=== PATIENT | male | born 1975 | race Caucasian/White ===

== ENCOUNTER → 2018-03-22 | Outpatient (CLI) | payer OTHER ==
[~2018-03-22] MED LIST: ALPR-475 PO; ASCO-184 PO; ASPI-621 PO; CYCL-259 PO; METO25TA35 PO; OXYC5TAB3 PO; WARF10TA PO-COUM; no medications
[2018-03-22 11:03] LABS: BASOPHILS # (AUTO) 0.06 x10^3/uL (0-0.1); BASOPHILS % (AUTO) 1 % (0-1); EOSINOPHILS # (AUTO) 0.57 x10^3/uL (0-0.4); EOSINOPHILS % (AUTO) 7 % (1-7); LYMPHOCYTES % (AUTO) 27 % (22-44); MD NO; MEAN CORPUSCULAR HEMOGLOBIN 29.8 pg (27.5-34.5); MEAN CORPUSCULAR HGB CONC 33.8 g/dL (33.2-36.2); MEAN PLATELET VOLUME 11.1 fL (7.4-10.4); MONOCYTES # (AUTO) 0.73 x10^3/uL (0.2-0.8); MONOCYTES % (AUTO) 9 % (2-9); NEUTROPHILS # (AUTO) 4.43 x10^3/uL (1.8-6.8); NEUTROPHILS % (AUTO) 56 % (42-75); PLATELET COUNT 174 x10^3/uL (130-400); RED BLOOD COUNT 5.36 x10^6/uL (4.38-5.82); RED CELL DISTRIBUTION WIDTH 13.4 % (9.4-14.8)
[2018-03-22 11:16] LABS: ALBUMIN 3.7 g/dL (3.4-5.0); CHLORIDE 107 mmol/L (98-107)
[2018-03-22 11:19] LABS: ALANINE AMINOTRANSFERASE 51 U/L (12-78); ALKALINE PHOSPHATASE 60 U/L (45-117); BILIRUBIN,TOTAL 0.8 mg/dL (0.2-1.0); CREATININE 0.95 mg/dL (0.7-1.3); TOTAL PROTEIN 7.5 g/dL (6.4-8.2)
[2018-03-22 11:21] LABS: ANION GAP 5 mmol/L (5-15)
== END | disposition home or self-care (01) ==
LOC: STAR 10:16
PROVIDERS: ATTEND Internal Medicine Cardiovascular Disease
DX: Z01.818 Encounter for other preprocedural examination (principal); I71.9 Aortic aneurysm of unspecified site, without rupture; Q23.1 Congenital insufficiency of aortic valve; R03.0 Elevated blood-pressure reading, without diagnosis of hypertension; F17.220 Nicotine dependence, chewing tobacco, uncomplicated
CPT/HCPCS: 36415; 80053; 85025

== ENCOUNTER 2018-03-29 09:54 | Day surgery (SDC) | payer OTHER ==
[2018-03-22 10:53] VITALS: BP 118/86
[~2018-03-29] VITALS: Ht 172.7 cm; Wt 88.6 kg
[2018-03-29] MEDS ORDERED: SODIUM CHLORIDE 0.9% 1,000 ML IV ONE (10:15)
[2018-03-29] MEDS ORDERED: ASPIRIN 325 MG TABLET EC PO ONE (10:30)
[2018-03-29] MEDS ORDERED: no medications (10:34)
[2018-03-29] MEDS ORDERED: ASPIRIN 325 MG TABLET EC ONE (10:38)
[2018-03-29] MEDS ORDERED: LIDOCAINE-MPF 2% ,5ML ONE (11:39)
[2018-03-29] MEDS ORDERED: FENTANYL PF 100 MCG/2ML ONE (11:39)
[2018-03-29] MEDS ORDERED: CLOPIDOGREL 300 MG TABLET ONE (11:39)
[2018-03-29] MEDS ORDERED: HEPARIN 1,000 UNITS/ML, 10ML ONE (11:39)
[2018-03-29] MEDS ORDERED: MIDAZOLAM 1 MG/ML, 5ML ONE (11:39)
[2018-03-29] MEDS ORDERED: VERAPAMIL 2.5 MG/ML, 2ML ONE (11:39)
== END 2018-03-29 15:43 ==
LOC: CACL 09:54
PROVIDERS: ATTEND Internal Medicine Cardiovascular Disease
DX: I71.2 Thoracic aortic aneurysm, without rupture (principal); I35.1 Nonrheumatic aortic (valve) insufficiency; F17.220 Nicotine dependence, chewing tobacco, uncomplicated; Z72.89 Other problems related to lifestyle
CPT/HCPCS: 93458; 93567; 99156; C1769; C1894; J1644; J2250; J3010; J3490; Q9967

== ENCOUNTER → 2018-04-06 | Outpatient (CLI) | payer OTHER | END | disposition home or self-care (01) | LOC: CACL 11:51 | PROVIDERS: ATTEND Thoracic Surgery (Cardiothoracic Vascular Surgery) | DX: Z01.818 Encounter for other preprocedural examination (principal); I08.0 Rheumatic disorders of both mitral and aortic valves; I25.10 Atherosclerotic heart disease of native coronary artery without angina pectoris | CPT/HCPCS: 93005 ==

== ENCOUNTER 2018-04-07 04:32 | Inpatient (IN) | payer OTHER ==
[2018-04-06 14:29] LABS: MICROSCOPIC NOT IND
[2018-04-06 14:31] LABS: CULTURE INDICATED? NO
[2018-04-06 14:34] LABS: BASOPHILS # (AUTO) 0.05 x10^3/uL (0-0.1); BASOPHILS % (AUTO) 0 % (0-1); EOSINOPHILS # (AUTO) 0.54 x10^3/uL (0-0.4); EOSINOPHILS % (AUTO) 5 % (1-7); LYMPHOCYTES # (AUTO) 2.03 x10^3/uL (1-3.4); LYMPHOCYTES % (AUTO) 19 % (22-44); MD NO; MEAN CORPUSCULAR HEMOGLOBIN 30.8 pg (27.5-34.5); MEAN CORPUSCULAR HGB CONC 34.4 g/dL (33.2-36.2); MEAN CORPUSCULAR VOLUME 89.4 fL (81-97); MEAN PLATELET VOLUME 10.5 fL (7.4-10.4); MONOCYTES # (AUTO) 0.65 x10^3/uL (0.2-0.8); MONOCYTES % (AUTO) 6 % (2-9); NEUTROPHILS # (AUTO) 7.17 x10^3/uL (1.8-6.8); NEUTROPHILS % (AUTO) 69 % (42-75); PLATELET COUNT 176 x10^3/uL (130-400); RED BLOOD COUNT 5.55 x10^6/uL (4.38-5.82); RED CELL DISTRIBUTION WIDTH 13.4 % (9.4-14.8)
[2018-04-06 14:43] LABS: ALANINE AMINOTRANSFERASE 45 U/L (12-78); ALBUMIN 3.7 g/dL (3.4-5.0); ANION GAP 5 mmol/L (5-15); CALCIUM 8.8 mg/dL (8.5-10.1); CHLORIDE 106 mmol/L (98-107); CREATININE 0.99 mg/dL (0.7-1.3)
[2018-04-06 14:46] LABS: ALKALINE PHOSPHATASE 57 U/L (45-117); BILIRUBIN,TOTAL 1.1 mg/dL (0.2-1.0); TOTAL PROTEIN 7.6 g/dL (6.4-8.2)
[2018-04-06 15:03] LABS: HEMOGLOBIN A1C 5.3 % (4.2-6.3); INTERNATIONAL NORMALIZED RATIO 1.02 (0.93-1.1); PROTHROMBIN TIME 10.6 Seconds (9.6-11.5)
[~2018-04-07] VITALS: Ht 172.7 cm; Wt 87.0 kg
[~2018-04-07 04:32] MED LIST changes: -ALPR-475 PO; -ASPI-621 PO; -CYCL-259 PO; -METO25TA35 PO; -OXYC5TAB3 PO; -WARF10TA PO-COUM
[2018-04-07 04:47] VITALS: BP_SYST 128; BP_SYST 147; BP_DIAS 75; BP_DIAS 84
[2018-04-07] MEDS ORDERED: INSULIN LISPRO 100 UNITS/ML, PEN SQ-INSULIN SCH (05:30)
[2018-04-07] MEDS ORDERED: CHLORHEXIDINE 15 ML BOTTLE MM SCH (05:30)
[2018-04-07] MEDS ORDERED: MIDAZOLAM 10MG/2 ML ONE (06:46)
[2018-04-07] MEDS ORDERED: FENTANYL PF 250 MCG/5ML ONE ×5 (06:46→08:34)
[2018-04-07] MEDS ORDERED: CALCIUM CHLORIDE 10%, 10ML SYR ONE (06:50)
[2018-04-07] MEDS ORDERED: ROCURONIUM 10MG/ML,5ML ONE ×3 (06:50→08:43)
[2018-04-07] MEDS ORDERED: PROPOFOL 10 MG/ML, 20ML ONE (06:50)
[2018-04-07] MEDS ORDERED: AMINOCAPROIC ACID 250 MG/ML, 20ML ONE ×2 (06:52)
[2018-04-07] MEDS ORDERED: EPINEPHRINE 1 MG/ML, 1ML ONE (06:52)
[2018-04-07] MEDS ORDERED: PHENYLEPHRINE 10 MG/ML ONE (06:52)
[2018-04-07] MEDS ORDERED: ALBUMIN HUMAN 5% 500 ML IV PRN (07:30)
[2018-04-07] MEDS ORDERED: PHENYLEPHRINE 10 MG in SODIUM CHLORIDE 0.9% 249 ML IV PRN ×2 (07:30→11:08)
[2018-04-07] MEDS ORDERED: POTASSIUM CHLORIDE 80 MEQ, SODIUM BICARBONATE 8.4% 10 MEQ, MAGNESIUM SULFATE 0.5 GM, LI... IV PRN (07:30)
[2018-04-07] MEDS ORDERED: DEXMEDETOMIDINE 200 MCG in SODIUM CHLORIDE 0.9% 48 ML IV SCH (07:30)
[2018-04-07] MEDS ORDERED: EPINEPHRINE 2 MG in SODIUM CHLORIDE 0.9% 248 ML IV SCH (07:30)
[2018-04-07] MEDS ORDERED: VANCOMYCIN IV PRN (07:30)
[2018-04-07] MEDS ORDERED: MANNITOL PMX 20% 500 ML IVPB PRN (07:30)
[2018-04-07] MEDS ORDERED: CEFUROXIME 1.5 GM in SODIUM CHLORIDE 0.9% 50 ML IVPB PRN (07:30)
[2018-04-07] MEDS ORDERED: SODIUM CHLORIDE 0.9% IV PRN (07:30)
[2018-04-07] MEDS ORDERED: REGULAR INSULIN 62.5 UNITS in SODIUM CHLORIDE 0.9% 249.375 ML IV PRN ×2 (07:30→11:08)
[2018-04-07] MEDS ORDERED: KETAMINE 10 MG/ML, 20ML ONE (08:34)
[2018-04-07] MEDS ORDERED: PROTAMINE SULFATE 10 MG/ML, 25ML ONE ×2 (08:38)
[2018-04-07] MEDS ORDERED: VASOPRESSIN 20 UNIT/ML, 1ML ONE (08:50)
[2018-04-07] MEDS: DOCUSATE 100 MG CAPSULE PO SCH ×2 (09:00→20:27)
[2018-04-07] MEDS: SODIUM CHLORIDE FLUSH 10ML SYR IVF SCH ×3 (09:00→20:27)
[2018-04-07] MEDS ORDERED: MUPIROCIN OINT 2%, 22GM TP SCH (09:00)
[2018-04-07] MEDS ORDERED: SODIUM BICARBONATE 1 MEQ/ML, 50ML VIAL ONE (10:57)
[2018-04-07] MEDS ORDERED: SODIUM BICARB 8.4%, 50ML SYRINGE ONE (10:57)
[2018-04-07] MEDS ORDERED: HEPARIN 1,000 UNITS/ML, 30ML ONE (10:57)
[2018-04-07] MEDS ORDERED: LIDOCAINE 2% 100MG/5ML SYRINGE ONE (10:57)
[2018-04-07] MEDS ORDERED: ALBUMIN HUMAN 25% 50 ML ONE (10:58)
[2018-04-07] MEDS ORDERED: DOBUTAMINE 250 MG in SODIUM CHLORIDE 0.9% 230 ML IV PRN (11:08)
[2018-04-07] MEDS ORDERED: DEXMEDETOMIDINE 200 MCG in SODIUM CHLORIDE 0.9% 48 ML IV PRN (11:08)
[2018-04-07] MEDS ORDERED: VASOPRESSIN 50 UNIT in SODIUM CHLORIDE 0.9% 247.5 ML IV PRN (11:08)
[2018-04-07] MEDS ORDERED: NITROGLYCERIN/D5W PMX 250 ML IV PRN (11:08)
[2018-04-07] MEDS ORDERED: SODIUM CHLORIDE 0.9% 1,000 ML IV PRN (11:08)
[2018-04-07] MEDS ORDERED: BISACODYL 5 MG EC TABLET PO PRN (11:30)
[2018-04-07] MEDS ORDERED: ACETAMINOPHEN 650 MG SUPP PR PRN (11:30)
[2018-04-07] MEDS ORDERED: morphine SULFATE 10 MG/ML, 1ML IVPush PRN (11:30)
[2018-04-07] MEDS ORDERED: DEXTROSE 50%, 50ML SYRINGE IVPush PRN (11:30)
[2018-04-07] MEDS ORDERED: PROCHLORPERAZINE 5 MG/ML, 2ML IVPush PRN (11:30)
[2018-04-07] MEDS ORDERED: INSULIN REGULAR 100 UNITS/ML, 3ML VIAL IVPush PRN (11:30)
[2018-04-07] MEDS ORDERED: MIDAZOLAM 1 MG/ML, 5ML IVPush PRN (11:30)
[2018-04-07] MEDS ORDERED: LACTATED RINGERS 1,000 ML IV PRN (11:30)
[2018-04-07] MEDS ORDERED: GLUCAGON 1 MG IM PRN (11:30)
[2018-04-07] MEDS ORDERED: ACETAMINOPHEN 325 MG TABLET PO PRN (11:30)
[2018-04-07] MEDS ORDERED: DEXTROSE 4 GM TAB.CHEW PO PRN (11:30)
[2018-04-07] MEDS ORDERED: ONDANSETRON 2MG/ML, 2ML IVPush PRN (11:30)
[2018-04-07] MEDS ORDERED: FENTANYL PF 100 MCG/2ML IVPush PRN (11:30)
[2018-04-07] MEDS ORDERED: EPINEPHRINE 2 MG in SODIUM CHLORIDE 0.9% 248 ML IV PRN (11:30)
[2018-04-07] MEDS ORDERED: SODIUM BICARB 8.4%, 50ML SYRINGE IV PRN (11:30)
[2018-04-07] MEDS ORDERED: BISACODYL 10 MG SUPP PR PRN (11:30)
[2018-04-07 11:39] LABS: GLUCOSE BY BLOOD GAS ANALYZER 99 mg/dL (70-110); HEMOGLOBIN BY BLOOD GAS ANALYZ 13.5 g/dL (14.0-18.0); POTASSIUM BY BLOOD GAS ANALYZR 3.9 mmol/L (3.6-5.5)
[2018-04-07] MEDS: KSCALE TO 4.5 IV SCH ×3 (12:00→23:35)
[2018-04-07 12:02] LABS: INTERNATIONAL NORMALIZED RATIO 1.25 (0.93-1.1); PROTHROMBIN TIME 12.9 Seconds (9.6-11.5)
[2018-04-07] MEDS: MAGNESIUM SULFATE 1 GM in SODIUM CHLORIDE 0.9% 50 ML IVPB SCH (12:02)
[2018-04-07] MEDS ORDERED: POTASSIUM CHLORIDE PMX 100 ML IV ONE ×2 (13:00→19:00)
[2018-04-07] MEDS: INSULIN LISPRO 100 UNITS/ML, PEN SQ-INSULIN SCH ×2 (13:14→21:30)
[2018-04-07] MEDS: HYDROcodone/APAP 10/325 MG TABLET PO PRN (16:13)
[2018-04-07] MEDS ORDERED: ONDANSETRON 4 MG TABLET ONE (18:06)
[2018-04-07] MEDS: VANCOMYCIN 1,300 MG in SODIUM CHLORIDE 0.9% 250 ML IVPB SCH (18:30)
[2018-04-07] MEDS: OXYcodone IR 5MG TABLET PO PRN (19:38)
[2018-04-07] MEDS: MUPIROCIN OINT 2%, 22GM NAS SCH (20:27)
[2018-04-07] MEDS: CEFUROXIME 1.5 GM in SODIUM CHLORIDE 0.9% 50 ML IVPB SCH (20:27)
[2018-04-08] MEDS: HYDROcodone/APAP 10/325 MG TABLET PO PRN ×4 (01:01→21:18)
[2018-04-08] MEDS: OXYcodone IR 5MG TABLET PO PRN ×2 (03:24→08:12)
[2018-04-08 04:50] LABS: BASOPHILS % (AUTO) 0 % (0-1); EOSINOPHILS # (AUTO) 0.01 x10^3/uL (0-0.4); EOSINOPHILS % (AUTO) 0 % (1-7); LYMPHOCYTES # (AUTO) 0.78 x10^3/uL (1-3.4); LYMPHOCYTES % (AUTO) 5 % (22-44); MD NO; MEAN CORPUSCULAR HEMOGLOBIN 29.7 pg (27.5-34.5); MEAN CORPUSCULAR HGB CONC 33.5 g/dL (33.2-36.2); MEAN CORPUSCULAR VOLUME 88.8 fL (81-97); MEAN PLATELET VOLUME 11.3 fL (7.4-10.4); MONOCYTES # (AUTO) 1.15 x10^3/uL (0.2-0.8); MONOCYTES % (AUTO) 7 % (2-9); NEUTROPHILS # (AUTO) 14.83 x10^3/uL (1.8-6.8); NEUTROPHILS % (AUTO) 88 % (42-75); PLATELET COUNT 117 x10^3/uL (130-400); RED BLOOD COUNT 4.43 x10^6/uL (4.38-5.82); RED CELL DISTRIBUTION WIDTH 13.3 % (9.4-14.8)
[2018-04-08 04:53] LABS: ANION GAP 6 mmol/L (5-15); CALCIUM 7.5 mg/dL (8.5-10.1); CHLORIDE 110 mmol/L (98-107); CREATININE 0.74 mg/dL (0.7-1.3)
[2018-04-08 05:14] LABS: INTERNATIONAL NORMALIZED RATIO 1.06 (0.93-1.1)
[2018-04-08] MEDS: KSCALE TO 4.5 IV SCH (06:00)
[2018-04-08] MEDS: VANCOMYCIN 1,300 MG in SODIUM CHLORIDE 0.9% 250 ML IVPB SCH (06:30)
[2018-04-08] MEDS: INSULIN LISPRO 100 UNITS/ML, PEN SQ-INSULIN SCH ×4 (07:00→21:00)
[2018-04-08] MEDS: SODIUM CHLORIDE FLUSH 10ML SYR IVF SCH ×5 (07:17→22:07)
[2018-04-08] MEDS: ASPIRIN 81 MG TABLET EC PO SCH (08:12)
[2018-04-08] MEDS: DOCUSATE 100 MG CAPSULE PO SCH ×2 (08:12→21:10)
[2018-04-08] MEDS: MUPIROCIN OINT 2%, 22GM NAS SCH ×2 (08:13→21:10)
[2018-04-08] MEDS: CEFUROXIME 1.5 GM in SODIUM CHLORIDE 0.9% 50 ML IVPB SCH (08:13)
[2018-04-08] MEDS: WARFARIN BIOPROSTHETIC VALVE PROTOCOL 2-3 XX SCH (09:00)
[2018-04-08] MEDS ORDERED: MAGNESIUM HYDROXIDE 8%, 30ML UDC PO PRN (09:30)
[2018-04-08] MEDS: KETOROLAC 30 MG/1 ML IVPush SCH ×3 (09:57→22:07)
[2018-04-08] MEDS: MAGNESIUM SULFATE 1 GM in SODIUM CHLORIDE 0.9% 50 ML IVPB SCH (12:28)
[2018-04-08] MEDS: CHLORHEXIDINE 15 ML BOTTLE MM SCH (12:28)
[2018-04-08] MEDS: WARFARIN HIGH DOSE PROTOCOL XX SCH (12:31)
[2018-04-08 14:17] VITALS: BP 115/74
[2018-04-08] MEDS ORDERED: WARFARIN 10 MG TABLET PO-COUM ONE (18:00)
[2018-04-08] MEDS: METOPROLOL TARTRATE 25 MG TABLET PO SCH (18:22)
[2018-04-08 21:00] VITALS: BP 145/85
[2018-04-09] MEDS: CHLORHEXIDINE 15 ML BOTTLE MM SCH ×2 (00:28→12:24)
[2018-04-09 00:34] VITALS: BP 107/72
[2018-04-09] MEDS: HYDROcodone/APAP 5/325 TABLET PO PRN ×2 (01:18→03:25)
[2018-04-09] MEDS: KETOROLAC 30 MG/1 ML IVPush SCH ×4 (03:25→21:16)
[2018-04-09 04:40] LABS: CALCIUM 7.8 mg/dL (8.5-10.1); CREATININE 0.71 mg/dL (0.7-1.3)
[2018-04-09 04:44] LABS: MEAN CORPUSCULAR HEMOGLOBIN 30.6 pg (27.5-34.5); MEAN CORPUSCULAR HGB CONC 33.9 g/dL (33.2-36.2); MEAN CORPUSCULAR VOLUME 90.1 fL (81-97); RED BLOOD COUNT 4.07 x10^6/uL (4.38-5.82); RED CELL DISTRIBUTION WIDTH 13.8 % (9.4-14.8)
[2018-04-09 04:54] LABS: INTERNATIONAL NORMALIZED RATIO 1.09 (0.93-1.1); PROTHROMBIN TIME 11.3 Seconds (9.6-11.5)
[2018-04-09] MEDS: METOPROLOL TARTRATE 25 MG TABLET PO SCH ×2 (05:17→17:35)
[2018-04-09 05:18] LABS: ANION GAP 5 mmol/L (5-15); CHLORIDE 109 mmol/L (98-107)
[2018-04-09 05:51] LABS: MEAN PLATELET VOLUME 10.7 fL (7.4-10.4); PLATELET COUNT 102 x10^3/uL (130-400)
[2018-04-09 05:52] LABS: BASOPHILS # (AUTO) 0.04 x10^3/uL (0-0.1); BASOPHILS % (AUTO) 0 % (0-1); EOSINOPHILS % (AUTO) 1 % (1-7); LYMPHOCYTES # (AUTO) 1.17 x10^3/uL (1-3.4); LYMPHOCYTES % (AUTO) 8 % (22-44); MD SCAN; MONOCYTES # (AUTO) 1.21 x10^3/uL (0.2-0.8); MONOCYTES % (AUTO) 8 % (2-9); NEUTROPHILS # (AUTO) 12.37 x10^3/uL (1.8-6.8); NEUTROPHILS % (AUTO) 83 % (42-75)
[2018-04-09] MEDS: INSULIN LISPRO 100 UNITS/ML, PEN SQ-INSULIN SCH ×4 (07:00→21:24)
[2018-04-09] MEDS: ASPIRIN 81 MG TABLET EC PO SCH (07:49)
[2018-04-09] MEDS: SODIUM CHLORIDE FLUSH 10ML SYR IVF SCH ×6 (07:50→21:15)
[2018-04-09] MEDS: DOCUSATE 100 MG CAPSULE PO SCH ×2 (07:50→21:16)
[2018-04-09] MEDS: MUPIROCIN OINT 2%, 22GM NAS SCH ×2 (07:50→21:16)
[2018-04-09] MEDS: HYDROcodone/APAP 10/325 MG TABLET PO PRN ×4 (07:50→21:16)
[2018-04-09] MEDS: WARFARIN BIOPROSTHETIC VALVE PROTOCOL 2-3 XX SCH (07:56)
[2018-04-09 07:57] VITALS: BP 107/74
[2018-04-09] MEDS: WARFARIN HIGH DOSE PROTOCOL XX SCH (11:51)
[2018-04-09] MEDS: FUROSEMIDE 40 MG/4 ML IV SCH (12:10)
[2018-04-09] MEDS: POTASSIUM CHLORIDE 20 MEQ TAB.ER.PRT PO SCH (12:10)
[2018-04-09] MEDS: MAGNESIUM SULFATE 1 GM in SODIUM CHLORIDE 0.9% 50 ML IVPB SCH (12:25)
[2018-04-09 15:27] VITALS: BP 112/74
[2018-04-09] MEDS ORDERED: WARFARIN 7.5 MG TABLET PO-COUM ONE (18:00)
[2018-04-09 19:41] VITALS: BP 111/70
[2018-04-10] MEDS: CHLORHEXIDINE 15 ML BOTTLE MM SCH (01:18)
[2018-04-10] MEDS: HYDROcodone/APAP 10/325 MG TABLET PO PRN ×3 (01:18→09:23)
[2018-04-10 01:19] VITALS: BP 120/78
[2018-04-10] MEDS: KETOROLAC 30 MG/1 ML IVPush SCH ×4 (03:29→20:13)
[2018-04-10 03:57] LABS: BASOPHILS # (AUTO) 0.04 x10^3/uL (0-0.1); BASOPHILS % (AUTO) 0 % (0-1); EOSINOPHILS # (AUTO) 0.38 x10^3/uL (0-0.4); EOSINOPHILS % (AUTO) 3 % (1-7); LYMPHOCYTES # (AUTO) 1.57 x10^3/uL (1-3.4); LYMPHOCYTES % (AUTO) 13 % (22-44); MD NO; MEAN CORPUSCULAR HEMOGLOBIN 30.7 pg (27.5-34.5); MEAN CORPUSCULAR HGB CONC 34.5 g/dL (33.2-36.2); MEAN CORPUSCULAR VOLUME 89.1 fL (81-97); MEAN PLATELET VOLUME 11.2 fL (7.4-10.4); MONOCYTES % (AUTO) 8 % (2-9); NEUTROPHILS % (AUTO) 75 % (42-75); PLATELET COUNT 101 x10^3/uL (130-400); RED BLOOD COUNT 3.88 x10^6/uL (4.38-5.82); RED CELL DISTRIBUTION WIDTH 13.2 % (9.4-14.8)
[2018-04-10 04:00] LABS: ANION GAP 5 mmol/L (5-15); CALCIUM 7.7 mg/dL (8.5-10.1); CHLORIDE 107 mmol/L (98-107); CREATININE 0.75 mg/dL (0.7-1.3)
[2018-04-10 04:04] LABS: INTERNATIONAL NORMALIZED RATIO 1.36 (0.93-1.1); PROTHROMBIN TIME 14.1 Seconds (9.6-11.5)
[2018-04-10] MEDS: METOPROLOL TARTRATE 25 MG TABLET PO SCH ×2 (05:39→17:31)
[2018-04-10 06:35] VITALS: BP 130/82
[2018-04-10] MEDS: INSULIN LISPRO 100 UNITS/ML, PEN SQ-INSULIN SCH ×2 (07:00→11:00)
[2018-04-10] MEDS: SODIUM CHLORIDE FLUSH 10ML SYR IVF SCH ×6 (09:00→21:54)
[2018-04-10] MEDS: WARFARIN BIOPROSTHETIC VALVE PROTOCOL 2-3 XX SCH (09:00)
[2018-04-10] MEDS: POTASSIUM CHLORIDE 20 MEQ TAB.ER.PRT PO SCH (09:23)
[2018-04-10] MEDS: ASPIRIN 81 MG TABLET EC PO SCH (09:23)
[2018-04-10] MEDS: DOCUSATE 100 MG CAPSULE PO SCH ×2 (09:23→20:14)
[2018-04-10] MEDS: FUROSEMIDE 40 MG/4 ML IV SCH (09:23)
[2018-04-10] MEDS: MUPIROCIN OINT 2%, 22GM NAS SCH ×2 (09:28→20:13)
[2018-04-10] MEDS: WARFARIN HIGH DOSE PROTOCOL XX SCH (11:57)
[2018-04-10 12:01] VITALS: BP 147/86
[2018-04-10] MEDS: OXYcodone IR 5MG TABLET PO PRN ×3 (13:13→21:55)
[2018-04-10] MEDS ORDERED: WARFARIN 7.5 MG TABLET PO-COUM ONE (18:00)
[2018-04-10 20:00] VITALS: BP 125/76
[2018-04-11] MEDS: OXYcodone IR 5MG TABLET PO PRN ×3 (01:46→11:53)
[2018-04-11 01:50] VITALS: BP 128/68
[2018-04-11] MEDS: KETOROLAC 30 MG/1 ML IVPush SCH ×2 (03:28→09:47)
[2018-04-11] MEDS: METOPROLOL TARTRATE 25 MG TABLET PO SCH (05:32)
[2018-04-11 05:53] LABS: BASOPHILS # (AUTO) 0.05 x10^3/uL (0-0.1); BASOPHILS % (AUTO) 1 % (0-1); EOSINOPHILS # (AUTO) 0.51 x10^3/uL (0-0.4); EOSINOPHILS % (AUTO) 5 % (1-7); LYMPHOCYTES # (AUTO) 1.25 x10^3/uL (1-3.4); LYMPHOCYTES % (AUTO) 12 % (22-44); MD NO; MEAN CORPUSCULAR HEMOGLOBIN 30.4 pg (27.5-34.5); MEAN CORPUSCULAR HGB CONC 33.9 g/dL (33.2-36.2); MEAN CORPUSCULAR VOLUME 89.7 fL (81-97); MEAN PLATELET VOLUME 10.9 fL (7.4-10.4); MONOCYTES # (AUTO) 0.81 x10^3/uL (0.2-0.8); MONOCYTES % (AUTO) 8 % (2-9); NEUTROPHILS # (AUTO) 7.64 x10^3/uL (1.8-6.8); NEUTROPHILS % (AUTO) 75 % (42-75); PLATELET COUNT 141 x10^3/uL (130-400); RED BLOOD COUNT 4.08 x10^6/uL (4.38-5.82); RED CELL DISTRIBUTION WIDTH 13.6 % (9.4-14.8)
[2018-04-11 06:07] LABS: ANION GAP 7 mmol/L (5-15); CALCIUM 8.2 mg/dL (8.5-10.1); CHLORIDE 106 mmol/L (98-107)
[2018-04-11 06:10] LABS: INTERNATIONAL NORMALIZED RATIO 1.3 (0.93-1.1); PROTHROMBIN TIME 13.5 Seconds (9.6-11.5)
[2018-04-11 08:05] VITALS: BP 137/89
[2018-04-11] MEDS: ASPIRIN 81 MG TABLET EC PO SCH (08:07)
[2018-04-11] MEDS: POTASSIUM CHLORIDE 20 MEQ TAB.ER.PRT PO SCH (08:07)
[2018-04-11] MEDS: FUROSEMIDE 40 MG/4 ML IV SCH (08:07)
[2018-04-11] MEDS: DOCUSATE 100 MG CAPSULE PO SCH (08:08)
[2018-04-11] MEDS: SODIUM CHLORIDE FLUSH 10ML SYR IVF SCH ×3 (08:08)
[2018-04-11] MEDS: WARFARIN HIGH DOSE PROTOCOL XX SCH (08:09)
[2018-04-11] MEDS: WARFARIN BIOPROSTHETIC VALVE PROTOCOL 2-3 XX SCH (08:09)
[2018-04-11] MEDS: MUPIROCIN OINT 2%, 22GM NAS SCH (08:18)
[2018-04-11] MEDS ORDERED: CYCL-259 PO (09:21)
[2018-04-11] MEDS ORDERED: OXYC5TAB3 PO (09:21)
[2018-04-11] MEDS ORDERED: ALPR-475 PO (09:21)
[2018-04-11] MEDS ORDERED: ASPI-621 PO (09:21)
[2018-04-11] MEDS ORDERED: WARF10TA PO-COUM (09:21)
[2018-04-11] MEDS ORDERED: METO25TA35 PO (09:21)
[2018-04-11] MEDS ORDERED: WARFARIN 10 MG TABLET PO-COUM ONE (18:00)
== END 2018-04-11 14:00 | disposition home health service (06) | DRG 219 ==
LOC: 5SO 04:32 → CCU 08:40 → 5SO 04-08 12:09 → DCLOUNGE 04-11 13:19
PROVIDERS: ADMIT Thoracic Surgery (Cardiothoracic Vascular Surgery); ATTEND Thoracic Surgery (Cardiothoracic Vascular Surgery)
PROC: 02RF08Z Replacement of Aortic Valve with Zooplastic Tissue, Open Approach (ICD-10-PCS; 2018-04-07)
PROC: 5A1221Z Performance of Cardiac Output, Continuous (ICD-10-PCS; 2018-04-07)
PROC: B246ZZ4 Ultrasonography of Right and Left Heart, Transesophageal (ICD-10-PCS; 2018-04-07)
PROC: 5A1223Z Performance of Cardiac Pacing, Continuous (ICD-10-PCS; 2018-04-07)
PROC: 02QX0ZZ Repair Thoracic Aorta, Ascending/Arch, Open Approach (ICD-10-PCS; principal; 2018-04-07 07:30)
DX: I08.3 Combined rheumatic disorders of mitral, aortic and tricuspid valves (principal); J96.00 Acute respiratory failure, unspecified whether with hypoxia or hypercapnia; I71.2 Thoracic aortic aneurysm, without rupture; Z72.0 Tobacco use; Z86.79 Personal history of other diseases of the circulatory system; R00.0 Tachycardia, unspecified
CPT/HCPCS: 36415; 36600; S0017; 71045; 71046; 80048; 80053; 81003; 82040; 82330; 82800; 82803; 82810; 82947; 82962; 83036; 83735; 84132; 84295; 85014; 85018; 85025; 85049; 85347; 85610; 85730; 86850; 86900; 86923; 87081; 88304; 88305; 93005; 93312; 93321; 93325; 93880; 94002; 94150; C1768; J0171; J0697; J1644; J1815; J1885; J1940; J2250; J2405; J2704; J2720; J3010; J3370; J3475; J3480; J3490; P9045; P9047; C1751; C1760; C1781; J2370; J7050; J7120

== ENCOUNTER → 2021-02-04 | Outpatient (CLI) | payer OTHER ==
[~2021-02-04] MED LIST changes: +ALPR0.5T7 PO; +ASPI81TA45 PO; +CYCL10TA2 PO; +METO25TA35 PO; +OXYC5TAB98 PO; +WARF10TA PO-COUM
== END | disposition home or self-care (01) ==
LOC: CARD 09:17
PROVIDERS: ATTEND Internal Medicine Cardiovascular Disease
DX: Z13.6 Encounter for screening for cardiovascular disorders (principal); I11.9 Hypertensive heart disease without heart failure; Q23.1 Congenital insufficiency of aortic valve; I71.2 Thoracic aortic aneurysm, without rupture; Z95.4 Presence of other heart-valve replacement
CPT/HCPCS: 93017; 93306; 93356